=== PATIENT | female | born 1955 | race American Indian/Alaskan Native ===

== ENCOUNTER 2018-09-25 06:29 | Emergency (ER) | payer MEDICARE ==
[2018-09-25 06:37] VITALS: BP 163/91
[2018-09-25 07:16] LABS: Basophils % (Auto) 0.5 % (0.0-1.8); Eosinophils # (Auto) 0.1 K/mm3 (0.0-0.4); Eosinophils % (Auto) 0.7 % (0.0-4.3); Hematocrit 40.6 % (30.3-42.9); Hemoglobin 13.8 gm/dl (10.1-14.3); Lymphocytes # (Auto) 2.1 K/mm3 (1.2-5.4); Lymphocytes % (Auto) 25.3 % (13.4-35.0); Mean Corpuscular HGB Conc 34 % (30-34); Mean Corpuscular Volume 98 fl (79-97); Monocytes # (Auto) 0.5 K/mm3 (0.0-0.8); Monocytes % (Auto) 6.1 % (0.0-7.3); Platelet Count 218 K/mm3 (140-440); Red Blood Count 4.14 M/mm3 (3.65-5.03); Red Cell Distribution Width 13.4 % (13.2-15.2)
--- NOTE | 2018-09-25 07:30 | Emergency Department Report ---
ED Recheck HPI - General Chief Complaint: Hyperglycemia Stated Complaint: ELEVATED BLOOD SUGAR Time Seen by Provider: 09/25/18 07:13 Source: patient Mode of arrival: Ambulatory Limitations: No Limitations - Related Data Home Medications Medication Instructions Recorded Confirmed Last Taken Lisinopril [Zestril TAB] 2.5 mg PO QDAY 09/25/18 09/25/18 Unknown Previous Rx's Medication Instructions Recorded Last Taken Type Metformin HCl [Metformin HCl ER] 500 mg PO BID #120 [id number] 09/25/18 Unknown Rx Allergies Allergy/AdvReac Type Severity Reaction Status Date / Time No Known Allergies Allergy Unverified 04/20/15 12:25 ED Review of Systems ROS: Stated complaint: ELEVATED BLOOD SUGAR Other details as noted in HPI Comment: OUT OF METFORMIN AND SUGAR HIGH ED Past Medical Hx - Past Medical History Previous Medical History?: Yes Hx Hypertension: Yes Hx Diabetes: Yes Additional medical history: high chol - Surgical History Past Surgical History?: Yes Hx Breast Surgery: Yes - Family History Family history: no significant - Social History Smoking Status: Current Every Day Smoker Substance Use Type: None - Medications Home Medications: Home Medications Medication Instructions Recorded Confirmed Last Taken Type Lisinopril [Zestril TAB] 2.5 mg PO QDAY 09/25/18 09/25/18 Unknown History Metformin HCl [Metformin HCl ER] 500 mg PO BID #120 [id number] 09/25/18 Unknown Rx ED Physical Exam - General Limitations: No Limitations General appearance: alert - Head Head exam: Present: atraumatic - Eye Eye exam: Present: normal appearance Pupils: Present: normal accommodation - ENT ENT exam: Present: normal exam - Neck Neck exam: Present: normal inspection - Respiratory Respiratory exam: Present: normal lung sounds bilaterally - Cardiovascular Cardiovascular Exam: Present: regular rate - GI/Abdominal GI/Abdominal exam: Present: soft - Rectal Rectal exam: Present: deferred - Extremities Exam Extremities exam: Present: normal inspection - Back Exam Back exam: Present: normal inspection, full ROM - Neurological Exam Neurological exam: Present: alert, oriented X3 - Psychiatric Psychiatric exam: Present: normal affect, normal mood - Skin Skin exam: Present: warm, dry, intact ED Course Vital Signs 09/25/18 06:30 Temperature 97.7 F Pulse Rate 93 H Respiratory 18 Rate Blood Pressure 163/91 O2 Sat by Pulse 98 Oximetry ED Recheck MDM - Core Measures Measure Exclusions: not indicated - Differential Diagnosis DM WITH HYPERGLYCEMIA- OUT OF MEDS - Medical Decision Making MED REFILL Critical care attestation.: If time is entered above; I have spent that time in minutes in the direct care of this critically ill patient, excluding procedure time. ED Disposition Clinical Impression: Medication refill, Diabetes Disposition: DC-01 TO HOME OR SELFCARE Is pt being admited?: No Does the pt Need Aspirin: No Condition: Stable Instructions: Diabetes Mellitus Type 2 in Adults (ED) Additional Instructions: FOLLOW UP WITH PCP SCHEDULED FOLLOW UP WITH RETINA DOCTOR WE DISCUSSED REFERRAL BELOW Prescriptions: Metformin HCl [Metformin HCl ER] 500 mg PO BID #120 [id number] Referrals: STEVEN FIORE MD [Staff Physician] - 3-5 Days Time of Disposition: 07:28
[2018-09-25 07:58] LABS: Hemolysis Index 1
[2018-09-25 08:23] LABS: Alanine Aminotransferase 18 units/L (7-56); Albumin 4.4 g/dL (3.9-5); BUN/Creatinine Ratio 19; Blood Urea Nitrogen 13 mg/dL (7-17)
== END 2018-09-25 07:51 | disposition home or self-care (01) ==
LOC: ED 06:29
DX: E11.65 Type 2 diabetes mellitus with hyperglycemia (principal); Z76.0 Encounter for issue of repeat prescription; I10 Essential (primary) hypertension; E78.00 Pure hypercholesterolemia, unspecified; F17.200 Nicotine dependence, unspecified, uncomplicated
CPT/HCPCS: 36415; 80053; 82962; 85025; 99283